=== PATIENT | female | born 1990 | race African-American/Black ===

== ENCOUNTER 2018-09-10 20:13 | Emergency (ER) | payer SELFPAY ==
[2018-09-10 20:25] VITALS: BP 110/69; PULSE 88; TEMP 98.6; BMI 34.9
[2018-09-10] MEDS ORDERED: ACETAMINOPHEN 500 MG TABLET (FP) PO ONE (20:27)
[2018-09-10] MEDS ORDERED: MAG HYDROX/AL HYDROX/SIMETH -MYLANTA- ORAL SUSPENSION PO ONE (20:27)
[2018-09-10] MEDS ORDERED: ONDANSETRON 4 MG TABLET PO ONE (20:27)
--- NOTE | 2018-09-10 20:27 | PDOC ---
Rapid Medical Evaluation Time Seen by Provider: 09/10/18 20:19 Medical Evaluation: Allergies Allergy/AdvReac Type Severity Reaction Status Date / Time No Known Allergies Allergy Verified 09/10/18 20:19 Vital Signs Temp Pulse Resp BP Pulse Ox 98.6 F 88 18 110/69 98 09/10/18 20:20 09/10/18 20:20 09/10/18 20:20 09/10/18 20:20 09/10/18 20:20 09/10/18 20:25 Pt c/o: drank alcohol last night then this am vomited numerous times and had blood tinged sputum in vomit, now with fatigue and frontal headache, no meds taken Pt on brief exam: vss, no abd tenderness Pt ordered for: zofran, tylenol, and maalox Pt to proceed to the ED 09/10/18 20:42 Discharge Disposition - Diagnosis Nausea and vomiting in adult, UTI (urinary tract infection) - Discharge Dispostion Disposition: HOME Condition at time of disposition: Stable - Prescriptions Prescriptions: Cephalexin Monohydrate [Keflex -] 500 mg PO BID #20 capsule - Referrals Referrals: Doug Mendez DO [Staff Physician] - Call tomorrow - Patient Instructions Printed Discharge Instructions: DI for Vomiting -- Adult Additional Instructions: drink plenty of fluids including gatorade eat a bland diet follow up with your doctor return to the ER if symptoms worsen - Post Discharge Activity Work/School Note: Back to Work
--- NOTE | 2018-09-10 22:57 | PDOC ---
History of Present Illness - General Chief Complaint: Nausea/Vomiting Stated Complaint: VOMITING BLOOD Time Seen by Provider: 09/10/18 20:19 History Source: Patient - History of Present Illness Initial Comments: 09/11/18 00:07 28 year old female with nausea and vomiting today after heavy drinking last night . patient reports feeling hungover today with slight headache. vomited once blood tinged vomitus. patient denies any abdominal pain. reports symptoms are much improved from this morning. Past History - Past Medical History Allergies/Adverse Reactions: Allergies Allergy/AdvReac Type Severity Reaction Status Date / Time No Known Allergies Allergy Verified 09/10/18 20:19 Home Medications: Ambulatory Orders Cephalexin Monohydrate [Keflex -] 500 mg PO BID #20 capsule 09/11/18 - Suicide/Smoking/Psychosocial Hx Smoking History: Never smoked Information on smoking cessation initiated: No Hx Alcohol Use: No Drug/Substance Use Hx: No Review of Systems - Review of Systems Able to Perform ROS?: Yes Is the patient limited Setswana proficient: No Constitutional: No: Symptoms Reported, See HPI, Chills, Diaphoresis, Fever, Loss of Appetite, Malaise, Night Sweats, Weakness, Weight Stable, Unintentional Wgt. Loss, Unexplained wgt Loss, Other ABD/GI: Yes: Nausea, Vomiting. No: Symptoms Reported, See HPI, Abdominal Distended, Abd. Pain w/ defecation, Blood Streaked Bowels, Constipated, Diarrhea , Difficulty Swallowing, Poor Appetite, Poor Fluid Intake, Rectal Bleeding, Indigestion, Abdominal cramping, Tarry Stools, Other : No: Symptoms Reported, See HPI, Burning, Dysuria, Discharge, Frequency, Flank Pain, Hematuria, Incontinence, Pain, Urgency, Testicular Mass, Testicular Swelling, Lesions, Testicular Pain, Other *Physical Exam - Vital Signs Last Vital Signs Temp Pulse Resp BP Pulse Ox 98.6 F 88 18 110/69 98 09/10/18 20:20 09/10/18 20:20 09/10/18 20:20 09/10/18 20:20 09/10/18 20:20 - Physical Exam General Appearance: Yes: Appropriately Dressed Respiratory/Chest: positive: Lungs Clear, Normal Breath Sounds Cardiovascular: positive: Regular Rhythm, Regular Rate Gastrointestinal/Abdominal: positive: Normal Bowel Sounds, Soft. negative: Tender Musculoskeletal: positive: Normal Inspection Extremity: positive: Normal Capillary Refill Integumentary: positive: Normal Color, Dry, Warm Neurologic: positive: discharge coordinator II-XII NML intact, Fully Oriented, Alert, Normal Mood/ Affect Progress Note - Progress Note Progress Note: Nausea and vomiting after alcohol ingestion P: UA Urine zofran maalox cephalexin: nitrite positive + leuks > 1000 bacteria Medical Decision Making - Medical Decision Making 09/11/18 00:11 patient is drinking gingerale. no vomiting n the ED> will d./c home *DC/Admit/Observation/Transfer Diagnosis at time of Disposition: Nausea and vomiting in adult UTI (urinary tract infection) Qualifiers: Urinary tract infection type: acute cystitis Hematuria presence: without hematuria Qualified Code(s): N30.00 - Acute cystitis without hematuria - Discharge Dispostion Disposition: HOME - Referrals Referrals: Doug Mendez DO [Staff Physician] - Call tomorrow - Patient Instructions Printed Discharge Instructions: DI for Vomiting -- Adult Additional Instructions: drink plenty of fluids including gatorade eat a bland diet follow up with your doctor return to the ER if symptoms worsen - Post Discharge Activity Forms/Work/School Notes: Back to Work
[2018-09-10] MEDS ORDERED: ONDANSETRON *ODT* 4 MG TABLET ONE (23:46)
[2018-09-10] MEDS ORDERED: MAG HYDROX/AL HYDROX/SIMETH 30 ML UNIT-DOSE CUP ONE (23:46)
[2018-09-10] MEDS ORDERED: ACETAMINOPHEN 325 MG TABLET (FP) ONE (23:46)
[2018-09-11 00:12] LABS: HCG,QUALITATIVE URINE Negative
[2018-09-11 00:38] LABS: EPI CELLS 4.4 /HPF (0-5/HPF); HYALINE CASTS 15 /lpf (0-8); PH,URINE 6.5 (5.0-8.0); URINE APPEARANCE CLEAR; URINE BACTERIA >9000 /hpf (NEGATIVE); URINE BILIRUBIN NEGATIVE (NEGATIVE); URINE COLOR YELLOW; URINE GLUCOSE (UA) NEGATIVE (NEGATIVE); URINE KETONE TRACE (NEGATIVE); URINE LEUK ESTERASE 1+ (NEGATIVE); URINE NITRITE POSITIVE (NEGATIVE); URINE PROTEIN NEGATIVE (NEGATIVE); URINE RBC 2 /hpf (0-4); URINE WBC 17 /hpf (0-5)
== END 2018-09-11 05:09 | disposition home or self-care (01) ==
LOC: JER 20:13
DX: R51 Headache (principal)
CPT/HCPCS: 81003; 84703; 99281-25